=== PATIENT | female | born 1980 | race Two or more races ===

== ENCOUNTER 2016-06-13 14:23 | Emergency (ER) | payer MEDICAID ==
[~2016-06-13] VITALS: Ht 152.4 cm; Wt 81.8 kg
[2016-06-13 14:33] VITALS: BP 175/133; PULSE 110; RESP 24; O2SAT 100
[2016-06-13] MEDS: Buprenorphine 2 mg SL Tablet SL PRN ×2 (16:15→16:17)
--- NOTE | 2016-06-13 16:17 | ED.REPORT ---
HPI-General Illness Date of Service Jun 13, 2016 ED Provider: Gonzalez Avalos MD A 36 year old female with a history of IV drug use presents to the ED in heroin withdrawal after her last usage two days ago. Associated symptoms include chills , restlessness, diffuse joint pain, rhinorrhea, anxiety, nausea, and vomiting. She has been on Suboxone in the past, with no success. The patient has plans to stay [facility] until treatment, which is arranged with [facility]. 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 Nursing Notes Stated Complaint: WITHDRAWALS NEEDS DETOX Chief Complaint: Substance Abuse Nursing Notes Reviewed: Yes Allergies: Coded Allergies: omeprazole (Verified Allergy, Severe, HIVES, CLOSES THROAT, 06/13/16) Penicillins (Verified Allergy, Mild, RASH, 06/13/16) Scheduled Buprenorphine (Buprenorphine) 2 Mg Tab.subl 4 MG SL BID General Time Seen by MD: 16:00 Chief Complaint Other (Heroin Withdrawal) Hx Obtained From: Patient Arrived By: Walk-in Sudden in Onset?: No Onset Occurred: 2 days ago Symptom Duration: Since onset Location: : Ankle left: Ankle right: Elbow left: Elbow right: Hip left: Hip right: Knee left: Knee right: Shoulder left: Shoulder right: Wrist left: Wrist right Quality: Painful Severity: Current: Moderate Severity: Maximum: Moderate Associated with: Reports: Joint pain, Vomiting, Denies: Fever Pertinent Negative: Relieved by nothing Context Related History: Reports Drug dependence Recent Healthcare: No recent doctor visit Similar Sx Previous: No Past Medical History Past Medical History None reported Past Surgical History None reported Smoking History Current Every Day Smoker Social History Drug Use: IV drugs (Heroin), Meth Other Social History: Good social support Ambulatory Status Independent Review of Systems + Heroin withdrawal, restlessness Full Review of Systems Constitutional: Reports: Chills, Denies: Fever Respiratory: Denies: Non-productive cough, Shortness of breath GI: Reports: Nausea, Vomiting Musculoskeletal: Reports: Joint pain (Diffuse) Allergy / Immune: Reports: Rhinorrhea Psychiatric: Reports: Anxiety Complete sys rev & neg: except as marked. Physical Exam Vital Signs Vital Signs Date Time Temp Pulse Resp B/P Pulse Ox O2 Delivery O2 Flow Rate FiO2 06/13/16 17:47 96 17 156/98 100 Room Air 06/13/16 17:18 96 17 156/98 100 Room Air 06/13/16 14:33 36.7 110 24 175/133 100 Room Air Initial VS: Reviewed ENT: Conjunctiva normal, No scleral icterus Neck: Supple, Full range of motion Respiratory: Breath sounds normal, Clear to auscultation, No respiratory distress General/Constitutional: Awake, Alert Distress / Hydration: Positive: Distress mild Behavior: Positive: Anxious COWS score of 21 Head / Eyes: Atraumatic, Normocephalic Pupils: Positive: Dilated L (4mm), Dilated R (4mm) Cardiovascular: Regular rhythm, Heart sounds NL Heart Rate / Rhythm: Positive: Tachycardia (Mild, HR 100) Skin: Atraumatic, Color NL Color / Condition: Positive: Diaphoresis present Neurologic: Oriented X3, Speech NL Movement Abnormality: Positive: Tremor (Mild) Psychiatric: Affect NL, Cognitive function NL Abnormal Mood/Affect: Positive: Anxious Re-Eval/Medical Decision Time of Eval: 17:32 Patient Status: Condition improved Re-Evaluation/Progress Note: Patient feels much better, although her symptoms have not completely resolved. She is feeling sleepy from the medication. Discussed with patient diagnosis and plan for discharge. Follow-up and return to the ER instructions given. Patient agrees with plan for care and all questions were addressed. Counseled Regarding: Diagnosis, Need for follow-up, When/why to return to ED Discharge & Departure Primary Impression: Heroin withdrawal Disposition: Home Discharge Condition All VS Reviewed: Yes Condition: Stable Additional Instructions: Thank you for entrusting us with your care. Please take buprenorphine 4 mg. twice daily for three days, as prescribed. Call your primary care provider tomorrow for a follow-up appointment. Call Kristina Curry for an appointment this week to discuss a buprenorphine prescription. Return to the ER with any new or worsening symptoms. Referrals: [facility]IC[facility] (PCP) [facility] KRISTINA Cowan Attestation Portions of this note were transcribed by Sallie Mosquera. I, Dr. Avalos, personally performed the history, physical exam, and medical decision-making; I reviewed and confirmed the accuracy of the information in the transcribed note. Signed by: Camryn Longo, 06/13/2016, 18:00 copies to: [facility] ; Gonzalez Cote MD Jun 13, 2016 16:17 SALLIE MOSQUERA 12, 2017 17:11
[2016-06-13 17:18] VITALS: BP 156/98; PULSE 96; RESP 17; O2SAT 100
[2016-06-13] MEDS ORDERED: BUPR2TAB SL (17:39)
[2016-06-13 17:47] VITALS: BP 156/98; PULSE 96; RESP 17; O2SAT 100
== END 2016-06-13 17:48 | disposition home or self-care (01) ==
LOC: SED 14:23
DX: F11.23 Opioid dependence with withdrawal (principal); J34.89 Other specified disorders of nose and nasal sinuses; M25.50 Pain in unspecified joint; R11.2 Nausea with vomiting, unspecified; R68.83 Chills (without fever); F17.200 Nicotine dependence, unspecified, uncomplicated; Z88.0 Allergy status to penicillin; Z88.8 Allergy status to other drugs, medicaments and biological substances